=== PATIENT | male | born 1975 | race Hispanic/Latino ===

== ENCOUNTER 2018-06-23 01:21 | Emergency (ER) | payer SELFPAY ==
[~2018-06-23] VITALS: Ht 165.1 cm; Wt 115.7 kg
--- OUTSIDE RECORDS SUMMARY | 2018-06-23 01:24 | XMS REPORT | Clinical Summary ---
Author Author [facility] Organization [facility] Address Unknown Phone Unavailable Care Team Providers Care Quality Control Associate Name Role Phone PCP Unavailable Allergies Active Allergy Reactions Severity Noted Date Comments Penicillin Swelling 03/24/2015 Current Medications Prescription Sig. Disp. Refills Start End Date Status Date traMADol (ULTRAM) 50 mg Take 1 tablet by mouth 30 tablet 0 03/24/20 Active tabletIndications: LLQ every 6 hours as needed 15 abdominal pain, for Pain. Diverticulitis of intestine without perforation or abscess without bleeding codeine-guaiFENesin Take 10 mL by mouth 75 mL 0 02/27/20 Active (CHERATUSSIN AC) 10-100 nightly at bedtime as 17 mg/5 mL syrupIndications: needed (severe cough). Acute bronchitis, unspecified organism benzonatate (TESSALON 1-2 caps PO TID prn 20 capsule 1 02/27/20 Active PERLES) 100 mg cough. 17 capsuleIndications: Acute bronchitis, unspecified organism cetirizine (ZYRTEC) 10 mg Take 1 tablet by mouth 20 tablet 0 02/27/20 Active tabletIndications: Acute daily. 17 bronchitis, unspecified organism acetaminophen-codeine Take 1 tablet by mouth 30 tablet 0 06/18/20 Active (TYLENOL/CODEINE #3) every 4 hours as needed 18 300-30 mg per for Pain. tabletIndications: Acute pain of right knee Active Problems Problem Noted Date Acute pain of right knee 06/18/2018 Productive cough 03/24/2015 LLQ abdominal pain 03/24/2015 Asthma exacerbation 03/24/2015 Encounters Date Type Specialty Care Team Description 06/18/2018 Emergency Emergency Medicine Favian Connor MD Acute pain of right knee (Primary Dx) after 06/22/2017 Immunizations Name Dates Previously Given Next Due TDap (Tetanus Toxoid, 01/03/2017 Reduced Diphtheria Toxoid And Acellular Pertussis, Absorbed) Social History Tobacco Use Types Packs/Day Years Used Date Never Smoker Sex Assigned at Date Recorded Not on file Last Filed Vital Signs Vital Sign Reading Time Taken Blood Pressure 145/80 06/18/2018 9:30 PM [facility] Pulse 81 06/18/2018 9:30 PM [facility] Temperature 36.8 C (98.2 F) 06/18/2018 9:30 PM [facility] Respiratory Rate 18 06/18/2018 9:30 PM [facility] Oxygen Saturation 99% 06/18/2018 9:30 PM [facility] Inhaled Oxygen - - Concentration Weight - - Height - - Body Mass Index - - Plan of Treatment Date Type Specialty Care Team Description 07/08/2018 Office Visit Orthopedics Health Maintenance Due Date Last Done Comments IMM Influenza Seasonal 04/22/2018Apr to September (>/=19 yrs) Procedures Procedure Name Priority Date/Time Associated Diagnosis Comments XRAY HIP UNILATERAL 2/3 STAT 06/18/2018 Acute pain of right knee Results for this VIEWS 7:19 PM [facility] procedure are in the results section. XRAY FEMUR 2 VIEWS STAT 06/18/2018 Acute pain of right knee Results for this 7:19 PM [facility] procedure are in the results section. XRAY TIBIA AND FIBULA 2 STAT 06/18/2018 Acute pain of right knee Results for this VIEWS 7:19 PM [facility] procedure are in the results section. XRAY KNEE 3 VIEWS (TRAUMA STAT 06/18/2018 Acute pain of right knee Results for this - AP/LAT/OBL) 7:19 PM [facility] procedure are in the results section. after 06/22/2017 Results * XRAY FEMUR 2 VIEWS (06/18/2018 7:19 PM) Impressions Performed At IMPRESSION:No acute abnormality. [facility] This [facility] radiology report is a preliminary resident dictation until finalized by an attending.Changes to this preliminary report may occur in an additional preliminary or finalized version. Dictated By: Branden Tristan MD, 06/18/2018 7:52 PM I have reviewed the study and agree with the findings in this report. Signed By: Pilo Rodarte MD, 06/18/2018 8:07 PM Narrative Performed At EXAM: XR RIGHT HIP 1 VIEW AND AP PELVIS SMS EXAM: XR RIGHT FEMUR 2 VIEWS EXAM: XR RIGHT KNEE 3 VIEWS EXAM: XR RIGHT TIBIA-FIBULA 2 VIEWS DATE: 06/18/2018 7:33 PM INDICATION: right knee pain s.p injury. Acute pain of right knee COMPARISON: None available TECHNIQUE: AP pelvis, 1 view hip, 2 views of the femur, 3 views of the knee, 2 views of the tibia-fibula FINDINGS: Pelvis/Hip: No acute fracture or malalignment is identified. Femur: No acute fracture or malalignment is identified. Knee: No acute fracture or malalignment is identified. No knee joint effusion is identified. Tibia-fibula: No acute fracture or malalignment is identified. Soft tissues: No soft tissue abnormality is identified. Procedure Note Interface, Rad/Mammog In - 06/18/2018 8:12 PM [facility] EXAM: XR RIGHT HIP 1 VIEW AND AP PELVIS EXAM: XR RIGHT FEMUR 2 VIEWS EXAM: XR RIGHT KNEE 3 VIEWS EXAM: XR RIGHT TIBIA-FIBULA 2 VIEWS DATE: 06/18/2018 7:33 PM INDICATION: right knee pain s.p injury. Acute pain of right knee COMPARISON: None available TECHNIQUE: AP pelvis, 1 view hip, 2 views of the femur, 3 views of the knee, 2 views of the tibia-fibula FINDINGS: Pelvis/Hip: No acute fracture or malalignment is identified. Femur: No acute fracture or malalignment is identified. Knee: No acute fracture or malalignment is identified. No knee joint effusion is identified. Tibia-fibula: No acute fracture or malalignment is identified. Soft tissues: No soft tissue abnormality is identified. IMPRESSION IMPRESSION: No acute abnormality. This [facility] radiology report is a preliminary resident dictation until finalized by an attending. Changes to this preliminary report may occur in an additional preliminary or finalized version. Dictated By: Branden Tristan MD, 06/18/2018 7:52 PM I have reviewed the study and agree with the findings in this report. Signed By: Pilo Rodarte MD, 06/18/2018 8:07 PM Performing Organization Address City/State/Zipcode Phone Number SMS * XRAY HIP UNILATERAL 2/3 VIEWS (06/18/2018 7:19 PM) Impressions Performed At IMPRESSION:No acute abnormality. SMS This [facility] radiology report is a preliminary resident dictation until finalized by an attending.Changes to this preliminary report may occur in an additional preliminary or finalized version. Dictated By: Branden Tristan MD, 06/18/2018 7:52 PM I have reviewed the study and agree with the findings in this report. Signed By: Pilo Rodarte MD, 06/18/2018 8:07 PM Narrative Performed At EXAM: XR RIGHT HIP 1 VIEW AND AP PELVIS SMS EXAM: XR RIGHT FEMUR 2 VIEWS EXAM: XR RIGHT KNEE 3 VIEWS EXAM: XR RIGHT TIBIA-FIBULA 2 VIEWS DATE: 06/18/2018 7:33 PM INDICATION: right knee pain s.p injury. Acute pain of right knee COMPARISON: None available TECHNIQUE: AP pelvis, 1 view hip, 2 views of the femur, 3 views of the knee, 2 views of the tibia-fibula FINDINGS: Pelvis/Hip: No acute fracture or malalignment is identified. Femur: No acute fracture or malalignment is identified. Knee: No acute fracture or malalignment is identified. No knee joint effusion is identified. Tibia-fibula: No acute fracture or malalignment is identified. Soft tissues: No soft tissue abnormality is identified. Procedure Note Interface, Rad/Mammog In - 06/18/2018 8:12 PM [facility] EXAM: XR RIGHT HIP 1 VIEW AND AP PELVIS EXAM: XR RIGHT FEMUR 2 VIEWS EXAM: XR RIGHT KNEE 3 VIEWS EXAM: XR RIGHT TIBIA-FIBULA 2 VIEWS DATE: 06/18/2018 7:33 PM INDICATION: right knee pain s.p injury. Acute pain of right knee COMPARISON: None available TECHNIQUE: AP pelvis, 1 view hip, 2 views of the femur, 3 views of the knee, 2 views of the tibia-fibula FINDINGS: Pelvis/Hip: No acute fracture or malalignment is identified. Femur: No acute fracture or malalignment is identified. Knee: No acute fracture or malalignment is identified. No knee joint effusion is identified. Tibia-fibula: No acute fracture or malalignment is identified. Soft tissues: No soft tissue abnormality is identified. IMPRESSION IMPRESSION: No acute abnormality. This [facility] radiology report is a preliminary resident dictation until finalized by an attending. Changes to this preliminary report may occur in an additional preliminary or finalized version. Dictated By: Branden Tristan MD, 06/18/2018 7:52 PM I have reviewed the study and agree with the findings in this report. Signed By: Pilo Rodarte MD, 06/18/2018 8:07 PM Performing Organization Address City/State/Zipcode Phone Number SMS * XRAY KNEE 3 VIEWS (TRAUMA - AP/LAT/OBL) (06/18/2018 7:19 PM) Impressions Performed At IMPRESSION:No acute abnormality. SMS This [facility] radiology report is a preliminary resident dictation until finalized by an attending.Changes to this preliminary report may occur in an additional preliminary or finalized version. Dictated By: Branden Tristan MD, 06/18/2018 7:52 PM I have reviewed the study and agree with the findings in this report. Signed By: Pilo Rodarte MD, 06/18/2018 8:07 PM Narrative Performed At EXAM: XR RIGHT HIP 1 VIEW AND AP PELVIS SMS EXAM: XR RIGHT FEMUR 2 VIEWS EXAM: XR RIGHT KNEE 3 VIEWS EXAM: XR RIGHT TIBIA-FIBULA 2 VIEWS DATE: 06/18/2018 7:33 PM INDICATION: right knee pain s.p injury. Acute pain of right knee COMPARISON: None available TECHNIQUE: AP pelvis, 1 view hip, 2 views of the femur, 3 views of the knee, 2 views of the tibia-fibula FINDINGS: Pelvis/Hip: No acute fracture or malalignment is identified. Femur: No acute fracture or malalignment is identified. Knee: No acute fracture or malalignment is identified. No knee joint effusion is identified. Tibia-fibula: No acute fracture or malalignment is identified. Soft tissues: No soft tissue abnormality is identified. Procedure Note Interface, Rad/Mammog In - 06/18/2018 8:12 PM [facility] EXAM: XR RIGHT HIP 1 VIEW AND AP PELVIS EXAM: XR RIGHT FEMUR 2 VIEWS EXAM: XR RIGHT KNEE 3 VIEWS EXAM: XR RIGHT TIBIA-FIBULA 2 VIEWS DATE: 06/18/2018 7:33 PM INDICATION: right knee pain s.p injury. Acute pain of right knee COMPARISON: None available TECHNIQUE: AP pelvis, 1 view hip, 2 views of the femur, 3 views of the knee, 2 views of the tibia-fibula FINDINGS: Pelvis/Hip: No acute fracture or malalignment is identified. Femur: No acute fracture or malalignment is identified. Knee: No acute fracture or malalignment is identified. No knee joint effusion is identified. Tibia-fibula: No acute fracture or malalignment is identified. Soft tissues: No soft tissue abnormality is identified. IMPRESSION IMPRESSION: No acute abnormality. This [facility] radiology report is a preliminary resident dictation until finalized by an attending. Changes to this preliminary report may occur in an additional preliminary or finalized version. Dictated By: Branden Tristan MD, 06/18/2018 7:52 PM I have reviewed the study and agree with the findings in this report. Signed By: Pilo Rodarte MD, 06/18/2018 8:07 PM Performing Organization Address City/State/Zipcode Phone Number SMS * XRAY TIBIA AND FIBULA 2 VIEWS (06/18/2018 7:19 PM) Impressions Performed At IMPRESSION:No acute abnormality. SMS This [facility] radiology report is a preliminary resident dictation until finalized by an attending.Changes to this preliminary report may occur in an additional preliminary or finalized version. Dictated By: Branden Tristan MD, 06/18/2018 7:52 PM I have reviewed the study and agree with the findings in this report. Signed By: Pilo Rodarte MD, 06/18/2018 8:07 PM Narrative Performed At EXAM: XR RIGHT HIP 1 VIEW AND AP PELVIS SMS EXAM: XR RIGHT FEMUR 2 VIEWS EXAM: XR RIGHT KNEE 3 VIEWS EXAM: XR RIGHT TIBIA-FIBULA 2 VIEWS DATE: 06/18/2018 7:33 PM INDICATION: right knee pain s.p injury. Acute pain of right knee COMPARISON: None available TECHNIQUE: AP pelvis, 1 view hip, 2 views of the femur, 3 views of the knee, 2 views of the tibia-fibula FINDINGS: Pelvis/Hip: No acute fracture or malalignment is identified. Femur: No acute fracture or malalignment is identified. Knee: No acute fracture or malalignment is identified. No knee joint effusion is identified. Tibia-fibula: No acute fracture or malalignment is identified. Soft tissues: No soft tissue abnormality is identified. Procedure Note Interface, Rad/Mammog In - 06/18/2018 8:12 PM [facility] EXAM: XR RIGHT HIP 1 VIEW AND AP PELVIS EXAM: XR RIGHT FEMUR 2 VIEWS EXAM: XR RIGHT KNEE 3 VIEWS EXAM: XR RIGHT TIBIA-FIBULA 2 VIEWS DATE: 06/18/2018 7:33 PM INDICATION: right knee pain s.p injury. Acute pain of right knee COMPARISON: None available TECHNIQUE: AP pelvis, 1 view hip, 2 views of the femur, 3 views of the knee, 2 views of the tibia-fibula FINDINGS: Pelvis/Hip: No acute fracture or malalignment is identified. Femur: No acute fracture or malalignment is identified. Knee: No acute fracture or malalignment is identified. No knee joint effusion is identified. Tibia-fibula: No acute fracture or malalignment is identified. Soft tissues: No soft tissue abnormality is identified. IMPRESSION IMPRESSION: No acute abnormality. This [facility] radiology report is a preliminary resident dictation until finalized by an attending. Changes to this preliminary report may occur in an additional preliminary or finalized version. Dictated By: Branden Tristan MD, 06/18/2018 7:52 PM I have reviewed the study and agree with the findings in this report. Signed By: Pilo Rodarte MD, 06/18/2018 8:07 PM Performing Organization Address City/State/Zipcode Phone Number SMS after 06/22/2017
--- OUTSIDE RECORDS SUMMARY | 2018-06-23 01:24 | XMS REPORT ---
Author [facility] Address Unknown Phone Unavailable Care Team Providers Care Freelance Operator Name Role Phone Unavailable Unavailable Problems This patient has no known problems. Allergies, Adverse Reactions, Alerts This patient has no known allergies or adverse reactions. Medications This patient has no known medications. Encounters Start Date/Time End Date/Time Encounter Type Admission Type Attending [facility] Facility Care Department Encounter ID 2018-07-08 00:00:00 2018-07-08 00:00:00 Outpatient [facility] [id number] 2018-06-18 19:05:44 2018-06-18 19:05:44 Emergency [facility] [id number] 2018-06-18 18:02:35 2018-06-18 18:02:35 Emergency [facility] [id number] 2017-02-26 10:54:59 2017-02-26 10:54:59 Outpatient [facility] [id number] 2017-01-03 00:00:00 2017-01-03 00:00:00 Outpatient [facility] [id number]
== END 2018-06-23 02:30 | disposition left against medical advice (07) ==
LOC: ER 01:21
DX: R21 Rash and other nonspecific skin eruption (principal)